=== PATIENT | male | born 1940 | race Caucasian/White ===

== ENCOUNTER → 2019-11-13 10:29 | Outpatient (CLI) | payer OTHER, SELFPAY ==
--- NOTE | ~2019-11-13 | XR_ITS ---
XR shoulder LT min 2V 11/13/2019 10:41 INDICATION: Left shoulder pain. Limited range of motion PROCEDURE: 5 views left shoulder COMPARISON: No prior studies for comparison. FINDINGS: Fracture, dislocation or subluxation is not identified. The soft tissues appear within norm al limits. No foreign bodies are identified. IMPRESSION: 1: NO ACUTE BONE OR JOINT ABNORMALITY IDENTIFIED. Reviewed, dictated and finalized at location B.
== END ==
PROVIDERS: PCP Internal Medicine; Visit Provider Internal Medicine
DX: M25.519 Pain in unspecified shoulder (principal)
CPT/HCPCS: 73030

== ENCOUNTER 2020-08-31 07:17 | Outpatient (CLI) | payer OTHER, SELFPAY ==
--- NOTE | ~2020-08-31 | XR_ITS ---
XR lumbar spine 2-3V DATE: 08/31/2020 09:13 INDICATION: Low back pain, radiculopathy. TECHNIQUE: Standing AP, lateral and coned lateral lumbosacral views COMPARISON: None FINDINGS: There is rotatory dextroscoliosis of the lumbar spine. Diffuse osteopenia. Grade 1 anterolisthesis at L5-S1. There is degenerative change at the apophyseal joints in the lower lumbar and lumbosacral area. No fracture or bone destruction is evident. The lumbar pedicles appear intact. Lumbar and lumbosacral interspaces are relatively well preserved. The sacroiliac joints are intact. There is extensive abdominal aortic calcification without apparent aneurysm. IMPRESSION: Osteopenia Rotatory dextroscoliosis of the lumbar spine Degenerative change at the apophyseal joints of lower lumbar and lumbosacral area Grade 1 anterolisthesis at L5-S1 Reviewed, dictated and finalized at location A. IMPRESSION: Osteopenia Rotatory dextroscoliosis of the lumbar spine Degenerative change at the apophyseal joints of lower lumbar and lumbosacral ar ea Grade 1 anterolisthesis at L5-S1
--- NOTE | ~2020-08-31 | MR_ITS ---
EXAMINATION: MR lumbar spine wo con DATE: 08/31/2020 08:59 INDICATION: Lumbago. Lumbar radiculopathy. TECHNIQUE: Magnetic resonance imaging (MRI) of the lumbar spine was performed without intravenous con trast. Sequences included sagittal T2-weighted FSE, sagittal T2-weighted FS FSE, sagittal T1-weighted FSE, and axial T2-weighted FSE. COMPARISON: Lumbar spine radiographs 08/31/2020 FINDINGS: There is 6 degrees levocurvature of thoracolumbar spine. There is 7 mm anterolisthesis of L 5 on S1. Vertebral body heights are normal. There is a hemangioma in L1 vertebral body. There is mode rately decreased disc height at L5-S1 with endplate remodeling. The distal spinal cord signal intensi ty is normal. The conus medullaris is at L1. There are cysts in the kidneys measuring up to 3.4 cm on the right. The following disc levels are specifically discussed: L1-L2: The disc is bulging and has an annular fissure. There is mild bilateral facet joint osteoarthr itis. There is mild bilateral neural foraminal stenosis. There is mild central canal stenosis. L2-L3: The disc is mildly bulging. There is moderate bilateral facet joint osteoarthritis. There is m ild bilateral neural foraminal stenosis. There is no central canal stenosis. L3-L4: The disc is bulging and has an annular fissure. There is moderate bilateral facet joint osteoa rthritis. There is mild bilateral neural foraminal stenosis. There is no central canal stenosis. L4-L5: The disc is bulging. There is severe bilateral facet joint osteoarthritis. There is mild bilat eral neural foraminal stenosis. There is mild central canal stenosis. L5-S1: The disc is bulging and has an annular fissure. There is severe bilateral facet joint osteoart hritis. There is mild bilateral neural foraminal stenosis. There is mild central canal stenosis. IMPRESSION: 1. Moderate lumbar spondylosis. Reviewed, dictated and finalized at location A.
== END 2020-08-31 07:18 | disposition home or self-care (01) ==
PROVIDERS: PCP Internal Medicine; Visit Provider Nurse Practitioner Family
DX: M47.26 Other spondylosis with radiculopathy, lumbar region (principal); M85.88 Other specified disorders of bone density and structure, other site
CPT/HCPCS: 72100; 72148

== ENCOUNTER 2021-01-04 07:22 | Outpatient (RCR) | payer OTHER, SELFPAY ==
[2020-12-14 08:50] VITALS: BMI 42.1
== END 2021-02-27 08:12 | disposition home or self-care (01) ==
LOC: ANHWOC 07:22
PROVIDERS: PCP Internal Medicine; Visit Provider Internal Medicine
DX: S81.801D Unspecified open wound, right lower leg, subsequent encounter (principal); S81.802D Unspecified open wound, left lower leg, subsequent encounter
CPT/HCPCS: 29581; 99212; G0463

== ENCOUNTER 2021-10-03 08:14 | Outpatient (CLI) | payer OTHER, SELFPAY ==
[2021-10-03 19:22] LABS: Alanine Aminotransferase 24 U/L (6-50); Albumin Level 3.9 g/dL (3.5-5.1); Alkaline Phosphatase 87 U/L (38-126); Anion Gap 7 mmol/L (8-16); Aspartate Amino Transferase 35 U/L (17-59); Bilirubin,Total 0.8 mg/dL (0.2-1.3); Blood Urea Nitrogen 27 mg/dL (9-20); Calcium 8.9 mg/dL (8.4-10.2); Carbon Dioxide 37 mmol/L (22-30); Chloride 100 mmol/L (98-107); Cholesterol 131 mg/dL (0-200); Estimated Glomerular Filt Rate 53; Glucose 79 mg/dL (65-110); HDL Direct 28 mg/dL; Sodium 144 mmol/L (137-145); Triglycerides 122 mg/dL (<150)
[2021-10-03 19:33] LABS: LDL Cholesterol Direct 67 mg/dL
== END 2021-10-03 08:15 | disposition home or self-care (01) ==
LOC: ANHGOSHLAB 08:16
PROVIDERS: PCP Internal Medicine; Visit Provider Family Medicine
DX: I12.9 Hypertensive chronic kidney disease with stage 1 through stage 4 chronic kidney disease, or unspecified chronic kidney disease (principal); E78.2 Mixed hyperlipidemia; N18.9 Chronic kidney disease, unspecified
CPT/HCPCS: 36415; 80053; 80061

== ENCOUNTER 2022-08-16 08:52 | Outpatient (CLI) | payer OTHER, SELFPAY ==
[2022-08-16 19:33] LABS: Cholesterol 135 mg/dL (0-200); HDL Direct 32 mg/dL; Triglycerides 130 mg/dL (<150)
[2022-08-16 19:38] LABS: Alanine Aminotransferase 25 U/L (6-50); Albumin Level 3.8 g/dL (3.5-5.1); Alkaline Phosphatase 89 U/L (38-126); Anion Gap 2 mmol/L (8-16); Aspartate Amino Transferase 32 U/L (17-59); Bilirubin,Total 0.8 mg/dL (0.2-1.3); Blood Urea Nitrogen 33 mg/dL (9-20); Calcium 9.1 mg/dL (8.4-10.2); Carbon Dioxide 38 mmol/L (22-30); Chloride 100 mmol/L (98-107); Estimated Glomerular Filt Rate 53; Glucose 124 mg/dL (65-110); Potassium 4.4 mmol/L (3.4-5.0); Sodium 140 mmol/L (137-145)
[2022-08-16 19:49] LABS: LDL Cholesterol Direct 74 mg/dL
[2022-08-16 20:18] LABS: MALB Creatinine Ratio 53.7 mg/g (0-30); Microalbumin Urine Random 16.1 mg/L (0-16.7)
[2022-08-16 20:53] LABS: Hemoglobin A1C 7.5 % (<5.7)
== END 2022-08-16 08:53 | disposition home or self-care (01) ==
LOC: ANHGOSHLAB 08:54
PROVIDERS: Internal Medicine; PCP Family Medicine; Visit Provider Family Medicine
DX: E11.9 Type 2 diabetes mellitus without complications (principal); Z13.228 Encounter for screening for other metabolic disorders; I12.9 Hypertensive chronic kidney disease with stage 1 through stage 4 chronic kidney disease, or unspecified chronic kidney disease; N18.9 Chronic kidney disease, unspecified
CPT/HCPCS: 36415; 80053; 80061; 82043; 83036

== ENCOUNTER 2022-12-04 11:32 | Outpatient (CLI) | payer OTHER, SELFPAY ==
[2022-12-04 19:21] LABS: Hemoglobin A1C 6.9 % (<5.7)
== END 2022-12-04 11:33 | disposition home or self-care (01) ==
PROVIDERS: PCP Family Medicine; Visit Provider Family Medicine
DX: E11.9 Type 2 diabetes mellitus without complications (principal)
CPT/HCPCS: 36415; 83036

== ENCOUNTER 2023-09-03 09:03 | Outpatient (CLI) | payer OTHER, SELFPAY ==
[2023-09-03 13:12] LABS: Alanine Aminotransferase 22 U/L (6-50); Albumin Level 4.1 g/dL (3.5-5.1); Alkaline Phosphatase 88 U/L (38-126); Anion Gap 9 mmol/L (4-12); Aspartate Amino Transferase 39 U/L (17-59); Bilirubin,Total 0.8 mg/dL (0.2-1.3); Blood Urea Nitrogen 31 mg/dL (9-20); Calcium 9.2 mg/dL (8.4-10.2); Carbon Dioxide 34 mmol/L (22-30); Chloride 102 mmol/L (98-107); Cholesterol 141 mg/dL (0-200); Estimated Glomerular Filt Rate 48; Glucose 129 mg/dL (65-110); HDL Direct 34 mg/dL; Potassium 4.6 mmol/L (3.4-5.0); Sodium 145 mmol/L (137-145); Triglycerides 139 mg/dL (<150)
[2023-09-03 13:23] LABS: LDL Cholesterol Direct 77 mg/dL
[2023-09-03 13:33] LABS: Creatinine Urine 39.2 mg/dL
[2023-09-03 13:40] LABS: MALB Creatinine Ratio 105.6 mg/g (0-30); Microalbumin Urine Random 41.4 mg/L (0-16.7)
[2023-09-04 18:41] LABS: Hemoglobin A1C 7.4 % (<5.7)
== END 2023-09-03 09:04 | disposition home or self-care (01) ==
PROVIDERS: PCP Family Medicine; Visit Provider Family Medicine
DX: E11.9 Type 2 diabetes mellitus without complications (principal); Z13.228 Encounter for screening for other metabolic disorders; E78.2 Mixed hyperlipidemia
CPT/HCPCS: 36415; 80053; 80061; 82043; 83036

== ENCOUNTER 2024-07-15 08:23 | Outpatient (CLI) | payer OTHER, SELFPAY ==
[2024-07-15 08:43] LABS: Basophils Percent Auto 0.3 % (0.2-1.2); Eosinophils Absolute Auto 0.1 K/mm3 (0-0.3); Eosinophils Percent Auto 0.8 % (0-4.4); Hematocrit 41.6 % (42.0-52.0); Hemoglobin 13.3 g/dL (14.0-18.0); Immature Granulocyte Absolute 0.01 K/mm3 (0.00-0.031); Immature Granulocyte Percent A 0.2 % (0-0.5); Lymphocytes Absolute Auto 1.43 K/mm3 (0.9-3.2); Lymphocytes Percent Auto 22.5 % (18.3-44.2); Mean Corpuscular Hemoglobin 31.4 pg (26-34); Mean Corpuscular Volume 98.3 fl (80-100); Mean Platelet Volume 9.4 fl (7.4-10.4); Monocytes Absolute Auto 0.4 K/mm3 (0.1-0.6); Monocytes Percent Auto 6.3 % (2.6-8.5); Neutrophils Absolute Auto 4.5 K/mm3 (1.3-6.7); Neutrophils Percent Auto 69.9 % (45.5-73.1); Platelet Count Result 210 k/mm3 (150-375); Red Blood Count 4.23 M/mm3 (4.6-6.20); Red Cell Distribution Width 12.4 % (11.5-14.5); White Blood Count 6.4 K/mm3 (4.5-10.0)
--- OUTSIDE RECORDS SUMMARY | 2024-07-15 09:06 | XMS_ITS ---
Author Name Sofiya WARD, MRS. Levy npal Address [address] [place] [address] Phone [phone] Organization [facility] ([facility]) Care Team Providers Care Brine Supervisor Name Role Phone Lisa Arriaza Unavailable [phone] SERGO CROSS Unavailable [phone] Reason for Referral Not Available Allergies, adverse reactions, alerts No known allergies History of medication use Medication Class Instructions Start Date End Date Mounjaro 2.5 mg/0.5ML Solution Auto-injector INJECT 2.5 MG (0.5 ML) SUBCUTANEOUSLY WEEKLY FOR 4 WEEKS 2024-07-08 No Data Available amLODIPine Besylate 2.5 mg Tab TAKE 1 TABLET BY MOUTH EVERY DAY 2023-10-22 No Data Available Atorvastatin Calcium 80 mg Tab TAKE 1 TABLET BY MOUTH EVERY DAY 2023-10-18 No Data Available BD INS SYRN UF 1 ML 30G 12.7MM USE 1 SYRINGE TO INJECT INSULIN TWICE A DAY 2024-03-06 No Data Available BD UF MICRO PEN NEEDLE [id number] USE WITH INSULIN PEN DIRECTED 2024-07-08 No Data Available BD UF JAZMINE PEN NEEDLE [id number] USE TO INJECT INSULIN TWICE DAILY 2023-11-01 No Data Available DULoxetine 60 mg Cap delayed rel TAKE 1 CAPSULE BY MOUTH EVERY DAY 2023-10-18 No Data Available FREESTYLE LITE TEST STRIP USE TO CHECK B LOOD SUGAR 3 TIMES A DAY 2024-03-11 No Data Available FREESTYLE LITE METER USE TO CHECK BLOOD SUGAR THREE TIMES DAILY 2024-03-11 No Data Available Furosemide 40 mg Tab TAKE 1 TABLET BY [place] [facility] TWICE A DAY 2024-04-22 No Data Available Lisinopril 20 mg Tab No Data Available 2024-01-31 No Data Available Tamsulosin 0.4 mg Cap TAKE 1 CAPSULE BY MOUTH DAILY - LAST FILL 2024-03-06 No Data Available Lantus SoloStar 100 UNIT/ML Solution Pen-injector Subcutaneous Sliding Scale every AM and PM 2024-07-14 No Data Av ailable Tylenol Extra Strength 500 mg Tab Take 2 tablets 8 hours as needed 2024-07-14 No Data Available Daily Value Multivitamin Tab No Data Available 2024-07-14 No Data Available Omeprazole 20 mg Cap delayed rel 1 capsule daily 2024-07-14 No Data Available Glucosamine-Chondroitin Cap No Data Available No Data Available Artificial Tears Solution Ophthalmic No Data Available 2024-07-14 No Data Available Problem List Problem Status Onset Date Resolved Date Diabetes mellitus Active 2024-07-14 N/A HLD (hyperlipidemia) Active 2024-07-14 N/A HTN (hypertension) Active 2024-07-14 N/A BPH (benign prostatic hyperplasia) Active 07-14 N/A Lymphedema Active 2024-07-14 N/A Morbid obesity Active 2024-07-14 N/A Encounters Encounters Type Facility Date of Service Diagnosis/Co mplaint Home visit for evaluation and management of new patient requiring medically appropriate examination and low level of medical decision making. If using time, at least 30 minutes total time on encounter [facility] 07/14/2024 Type 2 diabetes gregorio itus without complicationsHyperlipidemia, unspecifiedEssential (primary) hypertensionEnlarged prostate without lower urinary tract symptomsLymphedema, not elsewhere classifiedMorbid (severe) obesity due to excess calories Home visit for evaluation and management of new patient requiring medically appropriate examination and low level of medical decision making. If using time, at least 30 minutes total time on encounter [facility] 07/14/2024 Essential (primary) hypertensionType 2 diabetes mellitus without complications Home visit for evaluation and management of new patient requiring medically appropriate examination and low level of medical decision making. If using time, at least 30 minutes total time on encounter [facility] 07/14/2024 Essential (primary) hypertensionType 2 diabetes mellitus without complicationsBody mass index (BMI) 40.0-44.9, adult Home visit for evaluation and management of new patient requiring medically appropriate examination and low level of medical decision making. If using time, at least 30 minutes total time on encounter [facility] 07/14/2024 Type 2 diabetes gregorio itus without complications Home visit for evaluation and management of new patient requiring medically appropriate examination and low level of medical decision making. If using time, at least 30 minutes total time on encounter [facility] 07/14/2024 Morbid (severe) obes ity due to excess calories Vital Signs Date of Collection Vitals 2024-07-14 08:00:00 Height - 180.34 cmWe ight - 139.71 kgBody Mass Index (BMI) - 42.96 kg/m2BP Diastolic - 69.0 mm[Hg]BP Systolic - 106.0 mm[Hg]Heart Rate - 76.0 /minRespiratory Rate - 16.0 /minBody Temperature - 36.78 CelO2 % BldC Oximetry - 93.0 % Social History Sex Male History of Procedures Procedures Service Procedure code Service date Servicing provider Phone# Home visit for evaluation and management of new patient requiring medically appropriate examination and low level of medical decision making. If using time, at least 30 minutes total time on encounter [id number] 2024-07-14 No Data Available No Data Availa ble Most recent systolic blood pressure <130 mm Hg 3074F 2024-07-14 No Data Available No Data Availa ble Most recent dystolic blood pressure <80 mm Hg 3078F 2024-07-14 No Data Available No Data Availa ble Advance care planning discussion documented in medical record [id number] 2024-07-14 No Data Available No Data Divya snow Patient screened for fall risk; no falls in the last year or 1 fall with no injury in the last year 1100F 2024-07-14 No Data Available No Data Avail able Functional Status Functional Category Effective Dates continues to drive 2024-07-14 lives with spouse and independent of ADL 's 2024-07-14 ambulates with cane for longer distance 2024-07-14 Mental Status Status Date no cognitive issues were noted with mini mental exam 2024-07-14 Assessments Date of Service Assessments 2024-07-14 08:00:00 Diabetes mellitusHLD (hyperlipidemia)HTN (hypertension)BPH (benign prostatic hyperplasia)LymphedemaMorbid obesity Plan of Care Date of Service Plans 2024-07-14 08:00:00 See PCP every 6 david hspt reported A1C 6.2continue Lantus solostar sliding scale and Mounjaro 2.5 mg weekly injectionsmanaged by PCPnext lab draw tomorrow 07/15/2024hroniccontinue atorvastatin 80 mg once dailyheart healthy dietencouraged OTC fish oil supplement as recommended by PCPBP controlled and stablecontinue amlodipine 2.5 mg once daily and lisinopril 20 mg once dailyDiscussed sodium and caffeine intakeEncouraged to drink more water daily and increasing amount of activitychronic; +urinary frequencycontinue tamsulosin 0.4mg once dailymanaged by PCPchroniccontinue furosemide 40 mg twice a daycontinue wearing compression stocking during the day and keeping legs elevated while sitting for long periods of time and at night if possibleplaced on Mounjaro recentlyencouraged healthier eating habits and increasing daily activity, ie. stationary foot pedal and weights while sitting Health Concerns Date Concern 2024-07-14 [facility] is a service that involves a physician or advanced practice provider conducting comprehensive assessments in your patient s home or virtually to address crucial areas such as chronic conditions, quality gaps, social concerns, fall risk prevention, and various screenings. Please note that your patient will remain attributed to you even though they are participating in this service. If you have any questions, please reach out directly to our team at the phone number above.Your patient, Kendall Armando, 1940, was seen today for a [facility] visit. Patient read rights and responsibilities and consented to treatment. The purpose of this summary is to update you on the patient's current health status and share any relevant findings from the examination. 2024-07-14 [facility] past year 2024-07-14 Patient reports he'l l be getting blood work drawn tomorrow ordered by PCP. Seen by PCP on 07/09/2024 for check up
--- OUTSIDE RECORDS SUMMARY | 2024-07-15 09:06 | XMS_ITS | CONTINUITY OF CARE DOCUMENT ---
Author Name shay day Address Unknown Organization [facility] Address [address] [place] [address] Phone [phone] Care Team Providers Care Onsite Health Coach Name Role Phone shay day Unavailable Unavailable INSURANCE PROVIDERS Payer name Policy type / Coverage type [place] [employer] MEDICARE COMPLETE HMO Other [id number]
[2024-07-15 10:34] LABS: Microalbumin Urine Random 15.8 mg/L (0-16.7)
[2024-07-15 11:35] LABS: Alanine Aminotransferase 22 U/L (6-50); Alkaline Phosphatase 84 U/L (38-126); Anion Gap 4 mmol/L (4-12); Aspartate Amino Transferase 40 U/L (17-59); Bilirubin,Total 0.8 mg/dL (0.2-1.3); Blood Urea Nitrogen 32 mg/dL (9-20); Calcium 8.9 mg/dL (8.4-10.2); Carbon Dioxide 35 mmol/L (22-30); Chloride 103 mmol/L (98-107); Cholesterol 143 mg/dL (0-200); Estimated Glomerular Filt Rate 48; Glucose 126 mg/dL (65-110); HDL Direct 36 mg/dL; Magnesium 2.1 mg/dL (1.6-2.3); Potassium 4.6 mmol/L (3.4-5.0); Sodium 142 mmol/L (137-145); Triglycerides 140 mg/dL (<150)
[2024-07-15 11:46] LABS: LDL Cholesterol Direct 57 mg/dL
[2024-07-15 12:28] LABS: Hemoglobin A1C 7.2 % (<5.7)
[2024-07-20 14:10] LABS: Apolipoprotein B 79 mg/dL
== END 2024-07-15 08:24 | disposition home or self-care (01) ==
LOC: ANHLAB 08:24
PROVIDERS: PCP Family Medicine; Visit Provider Family Medicine
DX: E11.22 Type 2 diabetes mellitus with diabetic chronic kidney disease (principal); E66.01 Morbid (severe) obesity due to excess calories; I87.321 Chronic venous hypertension (idiopathic) with inflammation of right lower extremity; I12.9 Hypertensive chronic kidney disease with stage 1 through stage 4 chronic kidney disease, or unspecified chronic kidney disease; N40.1 Benign prostatic hyperplasia with lower urinary tract symptoms; Z79.4 Long term (current) use of insulin; N18.30 Chronic kidney disease, stage 3 unspecified
CPT/HCPCS: 36415; 80053; 80061; 82043; 82172; 82607; 83036; 83735; 85025

== ENCOUNTER 2025-01-19 11:06 | Outpatient (CLI) | payer OTHER, SELFPAY ==
[2025-01-19 12:19] LABS: Hemoglobin A1C 6.7 % (<5.7)
[2025-01-19 12:24] LABS: Alanine Aminotransferase 17 U/L (6-50); Albumin Level 3.8 g/dL (3.5-5.1); Alkaline Phosphatase 83 U/L (38-126); Anion Gap 5 mmol/L (4-12); Aspartate Amino Transferase 23 U/L (17-59); Bilirubin,Total 0.6 mg/dL (0.2-1.3); Blood Urea Nitrogen 23 mg/dL (9-20); Calcium 9.6 mg/dL (8.4-10.2); Carbon Dioxide 35 mmol/L (22-30); Chloride 101 mmol/L (98-107); Estimated Glomerular Filt Rate 52; Glucose 133 mg/dL (65-110); Magnesium 1.9 mg/dL (1.6-2.3); Potassium 3.6 mmol/L (3.4-5.0); Sodium 141 mmol/L (137-145); Total Protein 6.6 g/dL (6.3-8.2)
[2025-01-19 12:35] LABS: MALB Creatinine Ratio 48.9 mg/g (0-30)
--- OUTSIDE RECORDS SUMMARY | 2025-01-19 12:55 | XMS_ITS ---
Author Name Sofiya WARD, MRS. Levy npal Address [address] [place] [address] Phone [phone] Organization [facility] ([facility]) Care Team Providers Care Coding Quality Coordinator Name Role Phone Lisa Arriaza Unavailable [phone] Sergo Cross Unavailable [phone] SERGO CROSS Unavailable [phone] Reason for Referral Not Available Allergies, adverse [...] Data Available BD UF MICRO PEN NEEDLE [id number] USE WITH INSULIN PEN DIRECTED 2024-07-08 No Data Available BD UF JAZMINE PEN NEEDLE [id number] USE TO INJECT INSULIN TWICE DAILY 2023-11-01 [...] mg Tab TAKE 1 TABLET BY [place] [facility] TWICE A DAY 2024-04-22 No Data Available [...] List Problem Status Onset Date Resolved Date Synopsis Diabetes mellitus Active 2024-07-14 N/A last A1 C 6.2 HLD (hyperlipidemia) Active 2024-07-14 N/A N/A HTN (hypertension) Active 2024-07-14 N/A N/A BPH (benign prostatic hyperplasia) Active 2024-07-14 N /A N/A Lymphedema Active 2024-07-14 N/A N/A Morbid obesity Active 2024-07-14 N/A N/A Encounters Encounters Type Facility Date of Service Diagnosis/Co mplaint Home visit for evaluation and management of new patient requiring medically appropriate examination and low level of medical decision making. If using time, at least 30 minutes total time on encounter [facility] 07/14/2024 Type 2 diabetes gregorio itus without complicationsHyperlipidemia, unspecifiedEssential (primary) hypertensionEnlarged prostate without lower urinary tract symptomsLymphedema, not elsewhere classifiedMorbid (severe) obesity due to excess calories Home visit for evaluation and management of new patient requiring medically appropriate examination and low level of medical decision making. If using time, at least 30 minutes total time on encounter [facility] 07/14/2024 Essential (primary) hypertensionType 2 diabetes mellitus without complications Home visit for evaluation and management of new patient requiring medically appropriate examination and low level of medical decision making. If using time, at least 30 minutes total time on encounter [facility] 07/14/2024 Essential (primary) hypertensionBody mass index (BMI) 40.0-44.9, adult Home visit for evaluation and management of new patient requiring medically appropriate examination and low level of medical decision making. If using time, at least 30 minutes total time on encounter [facility] 07/14/2024 Type 2 diabetes gregorio itus without complications Home visit for evaluation and management of new patient requiring medically appropriate examination and low level of medical decision making. If using time, at least 30 minutes total time on encounter [facility] 07/14/2024 Morbid (severe) obes ity due to [...] least 30 minutes total time on encounter [id number] 2024-07-14 No Data Available No Data Availa ble Most recent systolic blood pressure <130 mm Hg 3074F 2024-07-14 No Data Available No Data Availa ble Most recent dystolic blood pressure <80 mm Hg 3078F 2024-07-14 No Data Available No Data Availa ble Advance care planning discussion documented in medical record [id number] 2024-07-14 No Data Available No Data Avai labkatherine Patient screened for fall risk; no falls [...] relevant findings from the examination. 2024-07-14 [facility] past year 2024-07-14 Patient reports he'l l be getting blood work drawn tomorrow ordered by PCP. Seen by PCP on 07/09/2024 for check up
[2025-01-19 13:22] LABS: Vitamin B12 650.0 pg/mL (239-931)
== END 2025-01-19 11:07 | disposition home or self-care (01) ==
LOC: ANHLAB 11:09
PROVIDERS: PCP Family Medicine; Visit Provider Family Medicine
DX: E11.22 Type 2 diabetes mellitus with diabetic chronic kidney disease (principal); N18.30 Chronic kidney disease, stage 3 unspecified; Z79.4 Long term (current) use of insulin; E66.01 Morbid (severe) obesity due to excess calories; N40.1 Benign prostatic hyperplasia with lower urinary tract symptoms; Z00.00 Encounter for general adult medical examination without abnormal findings
CPT/HCPCS: 36415; 80053; 82043; 82306; 82607; 83036; 83735